=== PATIENT | female | born 1970 | race African-American/Black ===

== ENCOUNTER 2016-05-09 13:22 | Emergency (ER) | payer MEDICAID, OTHER ==
[~2016-05-09] VITALS: Ht 167.6 cm; Wt 96.6 kg
[2016-05-09 16:50] VITALS: BP 142/70
== END 2016-05-09 16:53 | disposition home or self-care (01) ==
LOC: ER 13:28
DX: S29.012A Strain of muscle and tendon of back wall of thorax, initial encounter (principal); X58.XXXA Exposure to other specified factors, initial encounter; Y93.89 Activity, other specified; Y99.8 Other external cause status; Y92.89 Other specified places as the place of occurrence of the external cause
CPT/HCPCS: 71020

== ENCOUNTER 2017-05-18 17:37 | Emergency (ER) | payer MEDICAID ==
[~2017-05-18] VITALS: Ht 170.2 cm; Wt 99.8 kg
[2017-05-18 21:12] VITALS: BP 146/62
[2017-05-18] MEDS ORDERED: LEVOFLOXACIN 250 MG TAB PO ONE (21:30)
[2017-05-18 21:48] LABS: Basophils # (auto) 0 uL; Basophils % (auto) 0.5 % (0.0-2.0); Eosinophils # (auto) 0 uL; Hemoglobin 8.6 g/dL (12.2-16.2); Lymphocytes # (auto) 1.6 uL; Lymphocytes % (auto) 32.1 % (10.0-50.0); Mean Corpuscular Hemoglobin 18.7 pg (28.0-32.0); Monocytes # (auto) 0.4 uL; Neutrophils # (auto) 2.9 uL; Red Blood Cells 4.61 10^6/uL (4.0-5.20)
[2017-05-18 21:50] LABS: Eosinophils % (auto) 0.2 % (0.0-7.0); Hematocrit 28.5 % (36.0-46.0); Mean Corpuscular Hgb Conc. 30.2 g/dL (32.0-36.0); Mean Corpuscular Volume 61.8 fL (80.0-100.0); Monocytes % (auto) 7.7 % (0.0-12.0); Neutrophils % (auto) 59.5 % (37.0-80.0); Nucleated Red Blood Cells % 0.2 %; Platelet Count (auto) 350 10^3/uL (140-450)
[2017-05-18 21:58] LABS: Red Cell Distribution Width 22.7 % (11.8-14.3)
[2017-05-18 22:06] LABS: Alanine Aminotransferase 14 U/L (13-56); Albumin 2.8 g/dL (3.4-5.0); Anion Gap 9 (5-15); Aspartate Aminotransferase 17 U/L (15-37); BUN/Creatinine Ratio 13.7; Blood Urea Nitrogen 14 mg/dL (7-18); Calcium 8.7 mg/dL (8.5-10.1); Carbon Dioxide 28 mmol/L (21-32); Chloride 98 mmol/L (98-107); GFR African American 74 mL/min; GFR Non-African American 61 mL/min; Glucose 307 mg/dL (74-106); Potassium 3.6 mmol/L (3.5-5.1); Sodium 135 mmol/L (136-145)
[2017-05-18 22:13] LABS: Alkaline Phosphatase 88 U/L (45-117); Bilirubin, Total 0.1 mg/dL (0.2-1.0); INR 0.91 (0.9-1.15); Partial Thromboplastin Time 27.8 sec (22.64-33.71); Prothrombin Time 9.9 sec (9.37-12.3); Total Protein 7.7 g/dL (6.4-8.2)
== END 2017-05-18 22:57 | disposition home or self-care (01) ==
LOC: ER 17:37
DX: J06.9 Acute upper respiratory infection, unspecified (principal); E11.65 Type 2 diabetes mellitus with hyperglycemia; D64.9 Anemia, unspecified; E86.0 Dehydration; E78.5 Hyperlipidemia, unspecified; I10 Essential (primary) hypertension
CPT/HCPCS: 36415; 71046; 80053; 83880; 84484; 85025; 85379; 85610; 85730; 87400; 94761

== ENCOUNTER 2022-10-15 10:30 | Emergency (ER) | payer MEDICAID ==
[~2022-10-15] VITALS: Ht 170.2 cm; Wt 104.6 kg
[2022-10-15 10:50] VITALS: BP 159/76
[2022-10-15] MEDS ORDERED: KETOROLAC TROMETH 60MG/2ML VIAL IM ONE (11:45)
[2022-10-15] MEDS ORDERED: diazePAM 2 MG TAB PO ONE (12:45)
[2022-10-15] MEDS ORDERED: IBUP1TAB5 PO ×2 (13:37)
[2022-10-15] MEDS ORDERED: CYCL-611 PO (13:37)
[2022-10-15] MEDS ORDERED: IBUP-1456 PO (14:38)
== END 2022-10-15 13:53 | disposition home or self-care (01) ==
LOC: ER 10:30
DX: M43.6 Torticollis (principal); M62.838 Other muscle spasm; E11.9 Type 2 diabetes mellitus without complications; E78.5 Hyperlipidemia, unspecified; I10 Essential (primary) hypertension
CPT/HCPCS: 96372; 99283; J1885